=== PATIENT | male | born 1985 | race Caucasian/White ===

== ENCOUNTER 2020-08-10 13:38 | Emergency (ER) | payer OTHER ==
[~2020-08-10] VITALS: Ht 177.8 cm; Wt 77.1 kg
[~2020-08-10 13:38] MED LIST: ALPRAZOLAM 0.0.25 M1 PO; ATIVAN1 MG PO; AZITHROMYCIN 2250 MG PO; CLEOCIN HCL300 MG PO; FLEXERIL PO; GERD MED; IBUPROFEN 400400 M2 PO; IBUPROFEN 800800 M1 OR; IBUPROFEN 800800 MG PO; KEFLEX250 MG PO; NAPROSYN500 MG PO; NEBIVOLOL; NORCO 5-325 TA1 EACH PO; PERCOCET 5-3251 EACH PO; XANAX 0.5 MG0.5 MG PO; ZOFRAN ODT4 MG PO
[2020-08-10] MEDS ORDERED: CLEOCIN HCL300 MG PO (14:04)
[2020-08-10] MEDS ORDERED: IBUPROFEN 800800 M1 PO (14:04)
[2020-08-10] MEDS ORDERED: NORCO5 PO (14:20)
[2020-08-10 14:39] VITALS: BP 138/88
== END 2020-08-10 14:40 | disposition home or self-care (01) ==
LOC: M.ERS 13:38
DX: K04.7 Periapical abscess without sinus (principal); Z88.1 Allergy status to other antibiotic agents; F17.210 Nicotine dependence, cigarettes, uncomplicated; K02.9 Dental caries, unspecified